=== PATIENT | female | born 1980 | race Hispanic/Latino ===

== ENCOUNTER 2016-12-08 13:30 | Outpatient (CLI) | payer OTHER, BC ==
--- NOTE | 2016-12-08 15:00 | ULT ---
PELVIC ULTRASOUND WITH DOPPLER: (Transabdominal, transvaginal, color flow, and spectral Doppler) DATE: 12/08/16 HISTORY: Heavy menses. FINDINGS: Uterus measures 10.2 x 4.9 x 6.5 cm without solid mass or endometrial fluid. The endometrium measure s 8.0 mm in thickness. There is a 12.0 x 7.0 x 7.0 mm anechoic cystic mass in the low uterine segmen t (within the myometrium). This may either represent a septated cyst or two adjacent cysts. The right ovary measures 2.0 x 3.3 x 2.5 cm. The left ovary measures 1.8 x 3.2 x 1.5 cm. Flow is dem onstrated to both ovaries. No adnexal mass is seen on either side. There is a small amount of free f luid in the cul-de-sac. IMPRESSION: 1. Cyst(s) in the lower uterine segment. 2. Small amount of free fluid in the pelvis. POS: [facility]
== END 2016-12-08 13:31 | disposition home or self-care (01) ==
LOC: ULT 13:30
PROVIDERS: ATTEND Family Medicine
DX: N92.0 Excessive and frequent menstruation with regular cycle (principal); N83.8 Other noninflammatory disorders of ovary, fallopian tube and broad ligament
CPT/HCPCS: 76856

== ENCOUNTER 2017-03-12 10:53 | Emergency (ER) | payer OTHER, BC ==
[2017-03-12] MEDS ORDERED: Ibuprofen 800 MG TAB ONE (11:52)
== END 2017-03-12 12:01 | disposition home or self-care (01) ==
LOC: SCSER 10:53
DX: J06.9 Acute upper respiratory infection, unspecified (principal)
CPT/HCPCS: 99283

== ENCOUNTER 2018-04-15 14:04 | Outpatient (CLI) | payer OTHER, BC | END 2018-04-15 14:05 | disposition home or self-care (01) | LOC: DTY/OP 14:04 | PROVIDERS: ATTEND Family Medicine | DX: E11.9 Type 2 diabetes mellitus without complications (principal); K76.0 Fatty (change of) liver, not elsewhere classified | CPT/HCPCS: 97802 ==

== ENCOUNTER 2019-04-08 13:11 | Outpatient (CLI) | payer OTHER, BC ==
--- NOTE | 2019-04-08 13:40 | ULT ---
US Soft Tissue Other History: Palpable abnormality of the axilla Comparison: None. Findings: Real-time grayscale evaluation of the axilla was performed. No abnormal mass. No adenopathy. No soft tissue abnormality appreciated. Impression: No abnormal soft tissue abnormality appreciated.
--- NOTE | 2019-04-08 14:12 | MMO ---
Bilateral MAMMO Bilat Screen [facility]. CLINICAL HISTORY: Patient is 38 years old and is seen for screening. The patient has the following family history of breast cancer: maternal aunt, malignant (generic) and sister, malignant (generic). The patient has no personal history of cancer. VIEWS: The views performed were: bilateral craniocaudal with tomosynthesis and bilateral mediolateral oblique with tomosynthesis. FILMS COMPARED: The present examination has been compared to a prior imaging study performed at [facility] on 04/08/2019. This study has been interpreted with the assistance of computer-aided detection. MAMMOGRAM FINDINGS: There are scattered fibroglandular densities. There is a focal asymmetry seen in the upper-outer region of the left breast. In the right breast, there are no suspicious masses, calcifications or areas of architectural distortion. IMPRESSION: FOCAL ASYMMETRY IN THE LEFT BREAST REQUIRES ADDITIONAL EVALUATION. ADDITIONAL IMAGING. THE RESULTS OF THIS EXAM WERE SENT TO THE PATIENT. ACR BI-RADS Category 0 - Incomplete: Need additional imaging evaluation. [facility] will notify the patient of the need for additional imaging services. MAMMOGRAPHY NOTE: 1. A negative mammogram report should not delay a biopsy if a dominant of clinically suspicious mass is present. 2. Approximately 10% to 15% of breast cancers are not detected by mammography. 3. Adenosis and dense breasts may obscure an underlying neoplasm. Reported by: GYPSY ALVA MD Electonically Signed: [id number]
--- NOTE | 2019-04-08 14:15 | MMO ---
Left Breast MAMMO Unilat Diag [facility]. CLINICAL HISTORY: Patient is 38 years old and is seen for diagnostic exam. VIEWS: The views performed were: . FILMS COMPARED: The present examination has been compared to a prior imaging study performed at [facility] on 04/08/2019. This study has been interpreted with the assistance of computer-aided detection. MAMMOGRAM FINDINGS: There are scattered fibroglandular densities. Additional evaluation was performed for the focal asymmetry in the left breast, upper-outer seen on 04/08/2019. On the present examination, focal asymmetry in the left breast, upper-outer does not persist. There are no suspicious masses, suspicious calcifications, or new areas of architectural distortion. IMPRESSION: THERE IS NO MAMMOGRAPHIC EVIDENCE OF MALIGNANCY. THE PATIENT'S SISTER WAS DIAGNOSED WITH PREMENOPAUSAL BREAST CANCER AT 47 YEARS OF AGE. YEARLY SCREENING FRO THIS PATIENT ADVISED. RECOMMEND CONSIDERATION FOR GENETICS SCREENING. THE FINDINGS AND RECOMMENDATIONS WERE DISCUSSED WITH THE PATIENT PRIOR TO HER LEAVING THE CENTER. A ROUTINE FOLLOW-UP MAMMOGRAM IN 1 YEAR IS RECOMMENDED. THE RESULTS OF THIS EXAM WERE SENT TO THE PATIENT. ACR BI-RADS Category 2 - Benign finding MAMMOGRAPHY NOTE: 1. A negative mammogram report should not delay a biopsy if a dominant of clinically suspicious mass is present. 2. Approximately 10% to 15% of breast cancers are not detected by mammography. 3. Adenosis and dense breasts may obscure an underlying neoplasm. Reported by: GYPSY ALVA MD Electonically Signed: [id number]
== END 2019-04-08 13:12 | disposition home or self-care (01) ==
LOC: BICULT 13:11
PROVIDERS: ATTEND Family Medicine
DX: Z12.31 Encounter for screening mammogram for malignant neoplasm of breast (principal); R22.32 Localized swelling, mass and lump, left upper limb; N64.89 Other specified disorders of breast; Z80.3 Family history of malignant neoplasm of breast
CPT/HCPCS: 76999; 77063; 77067; G0279

== ENCOUNTER 2020-07-19 08:33 | Outpatient (CLI) | payer OTHER, BC | END 2020-07-19 08:34 | disposition home or self-care (01) | LOC: BICULT 08:33 | PROVIDERS: ATTEND Family Medicine | DX: R74.8 Abnormal levels of other serum enzymes (principal); K76.0 Fatty (change of) liver, not elsewhere classified | CPT/HCPCS: 93975 ==

== ENCOUNTER 2022-03-28 07:56 | Emergency (ER) | payer BC, OTHER ==
[2022-03-28] MEDS ORDERED: Metoclopramide HCl 10 MG/2 ML VIAL ONE (08:29)
[2022-03-28] MEDS ORDERED: diphenhydrAMINE 50 MG/ML VIAL ONE (08:29)
[2022-03-28] MEDS ORDERED: Acetaminophen 500 MG TAB ONE (08:29)
[2022-03-28 08:35] LABS: #Basophils 0.1 thou/uL (0.0-0.2); #Eosinphils 0.4 thou/uL (0.0-0.7); #Lymphocytes 3.4 thou/uL (1.20-3.40); #Monocytes 0.7 thou/uL (0.11-0.59); %Basophils 0.8 % (0.0-1.0); %Eosinophils 3.8 % (0.0-10.0); %Lymphocytes 35.6 % (21.0-51.0); %Monocytes 7.4 % (0.0-10.0); %Neutrophils 52.3 % (42.0-75.0); Hemoglobin 14.1 g/dL (12.0-16.0); Mean Corpuscular HGB CONC 34.5 g/dL (32.0-36.0); Mean Corpuscular Hemoglobin 30.6 pg (27.0-31.0); Mean Corpuscular Volume 88.8 fl (78.0-98.0); Mean Platelet Volume 9.4 fL (7.4-10.4); Platelet Count 205 10x3/uL (130-400); RBC Distribution Width 12.1 % (11.5-14.5); Red Blood Cell (RBC) Count 4.61 mill/uL (4.20-5.40); White Blood Cell (WBC) Count 9.6 10x3/uL (4.8-10.8)
[2022-03-28 08:41] LABS: Bilirubin Negative (Negative); Blood, Urine Negative (Negative); Clarity Clear (Clear); Glucose, Urine (Dipstick) Normal (Negative); Ketone, Urine Negative (Negative); Leukocyte Negative Leu/uL (Negative); Nitrite Negative (Negative); Protein, Urine (Dipstick) Negative (Neg-Trace); Specific Gravity, Urine 1.004 (1.002-1.036); Urobilinogen Normal mg/dL (Less than 2)
[2022-03-28 08:42] LABS: Pregnancy Test - Urine (BHCG) Negative (Negative); Pregu Control Background? CLEAR/WHITE (CLR/WHITE); Pregu Control Bar Appear? YES (CONTROL BAR); Specific Gravity 1.004 (1.002-1.036)
[2022-03-28 08:54] LABS: ALT (SGPT) 47 U/L (8-55); AST (SGOT) 22 U/L (5-34); Albumin 4.4 g/dL (3.5-5.0); Alkaline Phosphatase 89 U/L (40-110); Anion Gap 12 mmol/L (10-20); BUN (Urea Nitrogen) 8 mg/dL (7.0-18.7); Bilirubin, Total 0.3 mg/dL (0.2-1.2); Calc. Creatinine Clearance 0 mL/min (70-130); Calcium 9.2 mg/dL (7.8-10.44); Carbon Dioxide 21 mmol/L (22-29); Chloride 108 mmol/L (98-107); Estimated GFR 98; Globulin 3.1 g/dL (2.4-3.5); Glucose 170 mg/dL (70-105); Potassium 3.2 mmol/L (3.5-5.1); Protein, Total 7.5 g/dL (6.0-8.3); Sodium 138 mmol/L (136-145)
[2022-03-28] MEDS ORDERED: Potassium Chloride 20 MEQ TAB ONE (09:15)
[2022-03-28 09:43] LABS: SARS-CoV-2 NAA Rapid Test Not Detected (NotDetected)
== END 2022-03-28 10:16 | disposition home or self-care (01) ==
LOC: ERS 07:56
DX: R51.9 Headache, unspecified (principal); I10 Essential (primary) hypertension; E11.9 Type 2 diabetes mellitus without complications; Z79.84 Long term (current) use of oral hypoglycemic drugs; Z79.899 Other long term (current) drug therapy; Z20.822 Contact with and (suspected) exposure to COVID-19
CPT/HCPCS: 70450; 80053; 81003; 81025; 85025; 96374; 96375; J1200; J2765

== ENCOUNTER 2022-09-26 01:31 | Emergency (ER) | payer BC ==
[2022-09-26] MEDS ORDERED: LORazepam 2 MG/ML SYR.(CARPUJECT) ONE (01:57)
== END 2022-09-26 02:35 | disposition home or self-care (01) ==
LOC: ERS 01:31
DX: I10 Essential (primary) hypertension (principal); E11.9 Type 2 diabetes mellitus without complications; Z79.84 Long term (current) use of oral hypoglycemic drugs; Z79.899 Other long term (current) drug therapy
CPT/HCPCS: 93005; 96372; J2060

== ENCOUNTER 2023-04-15 08:32 | Outpatient (CLI) | payer BC ==
[2023-04-15 10:36] LABS: #Basophils 0.1 10x3/uL (0.0-0.2); #Eosinphils 0.2 10x3/uL (0.0-0.5); #Monocytes 0.6 10x3/uL (0.0-1.1); #Neutrophils 4.3 10x3/uL (1.5-8.4); %Basophils 0.9 % (0.0-2.0); %Eosinophils 2.2 % (0.0-6.0); %Monocytes 7.7 % (0.0-10.0); %Neutrophils 53.8 % (40.0-75.0); Hematocrit 39.9 % (34.9-44.5); Hemoglobin 14.2 g/dL (12.0-15.5); Mean Corpuscular HGB CONC 35.6 g/dL (32.0-36.0); Mean Corpuscular Hemoglobin 30.7 pg (27.0-33.0); Mean Corpuscular Volume 86.4 fl (81.6-98.3); Mean Platelet Volume 12.6 fl (7.4-10.4); Platelet Count 199 10x3/uL (150-450); RBC Distribution Width 12.2 % (11.5-14.5); Red Blood Cell (RBC) Count 4.62 10x6/uL (3.90-5.03)
[2023-04-15 11:07] LABS: ALT (SGPT) 138 U/L (8-55); AST (SGOT) 44 U/L (5-34); Albumin 4.3 g/dL (3.5-5.0); Alkaline Phosphatase 78 U/L (40-110); Anion Gap 15 mmol/L (10-20); BUN (Urea Nitrogen) 10 mg/dL (7.0-18.7); Bilirubin, Direct 0.1 mg/dL (0.1-0.3); Bilirubin, Total 0.4 mg/dL (0.2-1.2); Calc. Creatinine Clearance 0 mL/min (70-130); Calcium 9.2 mg/dL (7.8-10.44); Carbon Dioxide 22 mmol/L (22-29); Chloride 104 mmol/L (98-107); Estimated GFR 113; Glucose 202 mg/dL (70-105); Potassium 4.2 mmol/L (3.5-5.1); Sodium 137 mmol/L (136-145)
== END 2023-04-15 08:33 | disposition home or self-care (01) ==
LOC: LABBT 08:32
PROVIDERS: ATTEND Surgery
DX: Z01.818 Encounter for other preprocedural examination (principal); K80.20 Calculus of gallbladder without cholecystitis without obstruction
CPT/HCPCS: 80048; 80076; 85025; 93005; 93010

== ENCOUNTER 2023-04-22 08:30 | Day surgery (SDC) | payer BC ==
[2023-04-15 08:50] VITALS: BMI 32.9
[2023-04-22] MEDS ORDERED: Indocyanine Green 25 MG/10 ML VIAL ONE (09:38)
[2023-04-22] MEDS ORDERED: Bupivacaine 0.25% HCL 30 ML VIAL ONE (09:38)
[2023-04-22] MEDS ORDERED: EPINEPHrine 1 MG/ML VIAL ONE (09:38)
[2023-04-22] MEDS ORDERED: CEFAZOLIN 2 GM VIAL ONE (09:58)
[2023-04-22] MEDS ORDERED: Sodium Chloride 0.9% 100 ML ONE (09:59)
[2023-04-22] MEDS ORDERED: Meperidine HCl/PF 25 MG (1 mL) VIAL ONE (10:30)
[2023-04-22] MEDS ORDERED: Famotidine/PF 20 mg/2ml Vial ONE ×2 (10:30→10:41)
[2023-04-22] MEDS ORDERED: PROPOFOL 20 ML ONE (10:36)
[2023-04-22] MEDS ORDERED: Lidocaine 2% PF 5 ML VIAL ONE (10:36)
[2023-04-22] MEDS ORDERED: fentaNYL PF 100 MCG/2 ML SYRINGE ONE (10:36)
[2023-04-22] MEDS ORDERED: Rocuronium Bromide 10 MG/ML (10ML VIAL) ONE (10:37)
[2023-04-22] MEDS ORDERED: Dexamethasone 20 MG/5 ML VIAL ONE (10:39)
[2023-04-22] MEDS ORDERED: Metoclopramide HCl 10 MG (2 mL) VIAL ONE (10:39)
[2023-04-22] MEDS ORDERED: Ondansetron PF 4 MG/2 ML Vial ONE (10:39)
[2023-04-22] MEDS ORDERED: Ketorolac Tromethamine 30 MG (1 mL) VIAL ONE (10:39)
[2023-04-22] MEDS ORDERED: Midazolam HCl 2 mg/2 ml Vial ONE (10:40)
[2023-04-22] MEDS ORDERED: SUGAMMADEX SODIUM 200 MG/2 ML VIAL ONE (11:09)
[2023-04-22] MEDS ORDERED: fentaNYL 50 mcg/mL 1 mL Vial ONE (12:19)
[2023-04-22] MEDS ORDERED: HYDROcodone/Acetaminophen 5/325 mg Tablet ONE (12:56)
== END 2023-04-22 14:35 | disposition home or self-care (01) ==
LOC: SDC 08:30
PROVIDERS: ATTEND Surgery
PROC: 0FT44ZZ Resection of Gallbladder, Percutaneous Endoscopic Approach (ICD-10-PCS; principal; 2023-04-22)
DX: K80.10 Calculus of gallbladder with chronic cholecystitis without obstruction (principal); F41.9 Anxiety disorder, unspecified; I10 Essential (primary) hypertension; F41.1 Generalized anxiety disorder; E78.1 Pure hyperglyceridemia; Z90.49 Acquired absence of other specified parts of digestive tract; Z79.899 Other long term (current) drug therapy
CPT/HCPCS: 88304; C1776; J0171; J0665; J1100; J1885; J2001; J2175; J2250; J2405; J2704; J2765; J3010; J3490; S0028

== ENCOUNTER 2023-08-13 13:55 | Outpatient (CLI) | payer BC | END 2023-08-13 13:56 | disposition home or self-care (01) | LOC: BICMAMMO 13:55 | PROVIDERS: ATTEND Family Medicine | DX: Z12.31 Encounter for screening mammogram for malignant neoplasm of breast (principal); Z80.3 Family history of malignant neoplasm of breast; N64.89 Other specified disorders of breast | CPT/HCPCS: 77063; 77067 ==

== ENCOUNTER 2023-08-19 13:52 | Outpatient (CLI) | payer BC | END 2023-08-19 13:53 | disposition home or self-care (01) | LOC: BICMAMMO 13:52 | PROVIDERS: ATTEND Family Medicine | DX: N64.89 Other specified disorders of breast (principal); R92.321 Mammographic fibroglandular density, right breast | CPT/HCPCS: G0279 ==

== ENCOUNTER 2024-01-09 22:12 | Emergency (ER) | payer BC ==
[2024-01-09 23:38] LABS: #Basophils 0.06 10x3/uL (0.0-0.2); %Basophils 0.6 % (0.0-1.0); %Eosinophils 1.9 % (0.0-10.0); %Lymphocytes 27.9 % (21.0-51.0); %Monocytes 7.5 % (0.0-10.0); Hematocrit 39.7 % (36.0-47.0); Mean Corpuscular HGB CONC 32.7 g/dL (32.0-36.0); Mean Corpuscular Hemoglobin 29.1 pg (27.0-31.0); Mean Corpuscular Volume 88.8 fL (78.0-98.0); Platelet Count 206 10x3/uL (130-400); RBC Distribution Width 12.2 % (11.5-14.5); Red Blood Cell (RBC) Count 4.47 mill/uL (4.20-5.40)
[2024-01-09 23:47] LABS: Bacteria/HPF 1+ HPF (None Seen); Bilirubin Negative (Negative); Blood, Urine 3+ (Negative); CAUTI Indications for Culture Pelvic or flank pain; Clarity Turbid (Clear); Glucose, Urine (Dipstick) Normal (Negative); Ketone, Urine Negative (Negative); Leukocyte Negative Leu/uL (Negative); Nitrite Negative (Negative); Pregnancy Test - Urine (BHCG) Negative (Negative); Pregu Control Background? CLEAR/WHITE (CLR/WHITE); Pregu Control Bar Appear? YES (CONTROL BAR); Protein, Urine (Dipstick) 20 mg/dL (Neg-Trace); RBC/HPF Greater than 50 HPF (0-3); Specific Gravity 1.009 (1.002-1.036); Specific Gravity, Urine 1.009 (1.002-1.036); Squamous Epithelial 0-3 HPF (0-3); Urobilinogen Normal mg/dL (Less than 2)
[2024-01-09 23:49] LABS: Urine Culture Reflex No No
[2024-01-09 23:51] LABS: ALT (SGPT) 15 U/L (8-55); AST (SGOT) 14 U/L (5-34); Albumin 3.8 g/dL (3.5-5.0); Alkaline Phosphatase 68 U/L (40-110); Anion Gap 13 mmol/L (10-20); BUN (Urea Nitrogen) 11 mg/dL (7.0-18.7); Bilirubin, Total 0.2 mg/dL (0.2-1.2); Calc. Creatinine Clearance 0 mL/min (70-130); Calcium 9.1 mg/dL (7.8-10.44); Carbon Dioxide 23 mmol/L (22-29); Chloride 107 mmol/L (98-107); Estimated GFR 112; Globulin 3.1 g/dL (2.4-3.5); Glucose 97 mg/dL (70-105); Protein, Total 6.9 g/dL (6.0-8.3); Sodium 139 mmol/L (136-145)
[2024-01-10 00:22] LABS: CK (CPK) 22 U/L (29-168); Lipase 46 U/L (8-78)
== END 2024-01-10 04:00 | disposition home or self-care (01) ==
LOC: ERS 22:12
DX: N20.0 Calculus of kidney (principal); I10 Essential (primary) hypertension; E11.9 Type 2 diabetes mellitus without complications; Z55.6 Problems related to health literacy
CPT/HCPCS: 36415; 74176; 80053; 81001; 81025; 82550; 83605; 83690; 85025

== ENCOUNTER 2024-01-25 08:19 | Emergency (ER) | payer BC ==
[2024-01-25 09:27] LABS: #Basophils 0.07 10x3/uL (0.0-0.2); %Basophils 1.1 % (0.0-1.0); %Eosinophils 2.6 % (0.0-10.0); %Lymphocytes 18.2 % (21.0-51.0); %Monocytes 12.9 % (0.0-10.0); %Neutrophils 64.9 % (42.0-75.0); Hematocrit 43.6 % (36.0-47.0); Hemoglobin 15.4 g/dL (12.0-16.0); Mean Corpuscular HGB CONC 35.3 g/dL (32.0-36.0); Mean Corpuscular Hemoglobin 29.2 pg (27.0-31.0); Mean Corpuscular Volume 82.7 fL (78.0-98.0); Platelet Count 208 10x3/uL (130-400); RBC Distribution Width 12.5 % (11.5-14.5); Red Blood Cell (RBC) Count 5.27 mill/uL (4.20-5.40)
[2024-01-25 09:38] LABS: Bacteria/HPF None Seen HPF (None Seen); Bilirubin Negative (Negative); Blood, Urine Trace (Negative); CAUTI Indications for Culture Dysuria,urgency,freq; Clarity Clear (Clear); Glucose, Urine (Dipstick) Normal (Negative); Ketone, Urine Negative (Negative); Leukocyte Negative Leu/uL (Negative); Nitrite Negative (Negative); Protein, Urine (Dipstick) Negative (Neg-Trace); RBC/HPF 0-3 HPF (0-3); Specific Gravity, Urine 1.008 (1.002-1.036); Squamous Epithelial 0-3 HPF (0-3); Urobilinogen Normal mg/dL (Less than 2); WBC/HPF 0-3 HPF (0-3); pH, Urine 5.5 (5.0-9.0)
[2024-01-25 09:40] LABS: Urine Culture Reflex No No
[2024-01-25 10:08] LABS: Troponin I Less than 0.010 ng/mL (< 0.028)
[2024-01-25 10:24] LABS: ALT (SGPT) 18 U/L (8-55); AST (SGOT) 15 U/L (5-34); Albumin 4.3 g/dL (3.5-5.0); Alkaline Phosphatase 85 U/L (40-110); Anion Gap 13 mmol/L (10-20); BUN (Urea Nitrogen) 10 mg/dL (7.0-18.7); Bilirubin, Total 0.4 mg/dL (0.2-1.2); Calc. Creatinine Clearance 0 mL/min (70-130); Calcium 9.3 mg/dL (7.8-10.44); Carbon Dioxide 20 mmol/L (22-29); Chloride 106 mmol/L (98-107); Estimated GFR 101; Globulin 3.8 g/dL (2.4-3.5); Glucose 113 mg/dL (70-105); Lipase 39 U/L (8-78); Potassium 4.3 mmol/L (3.5-5.1); Protein, Total 8.1 g/dL (6.0-8.3); Sodium 135 mmol/L (136-145)
== END 2024-01-25 11:26 | disposition home or self-care (01) ==
LOC: ERS 08:19
DX: R00.0 Tachycardia, unspecified (principal); I10 Essential (primary) hypertension; E11.9 Type 2 diabetes mellitus without complications
CPT/HCPCS: 71046; 80053; 81001; 83690; 84443; 84484; 85025; 85379; 87428; 93005

== ENCOUNTER 2024-02-19 09:09 | Outpatient (CLI) | payer BC | END 2024-02-19 09:10 | disposition home or self-care (01) | LOC: BICMAMMO 09:09 | PROVIDERS: ATTEND Family Medicine | DX: R92.8 Other abnormal and inconclusive findings on diagnostic imaging of breast (principal); N64.89 Other specified disorders of breast | CPT/HCPCS: G0279 ==